=== PATIENT | male | born 1985 | race Caucasian/White ===

== ENCOUNTER → 2016-10-24 | Outpatient (CLI) | payer OTHER ==
[~2016-10-24] VITALS: Ht 175.3 cm; Wt 80.2 kg
[2016-10-24 13:11] VITALS: BP 146/88; PULSE 75; Ht 175.3 cm; Wt 80.2 kg
== END | disposition home or self-care (01) ==
LOC: C.NEUR 12:35
PROVIDERS: ATTEND Internal Medicine Pulmonary Disease
DX: R06.81 Apnea, not elsewhere classified (principal); Z87.898 Personal history of other specified conditions; E11.9 Type 2 diabetes mellitus without complications

== ENCOUNTER → 2016-12-06 | Outpatient (CLI) | payer OTHER ==
--- NOTE | 2016-12-07 06:22 | PAP/PSG TECHNICIAN REPORT ---
[facility] Spa Supervisor Polysomnogram Report Study name: None Report date: 12/07/2016 Study date: 12/06/2016 Referring Physician: Dodie Thompson PA-C Name: JULIO GARCIA Interpreting Physician: Randall Christianson M.D. Date of : 1985 Spa Supervisor: Irene Krishnan RPS. Sex: Male Age: 31 Study Type: PSG Weight: 176 lbs 15 in Height: 31 years, Height 5' 9" Neck Circum: BMI: 25.99 Medications: HUMALOG 100 UNIT/ML Patient History 31 yr-old male here for a baseline study. He has a history of waking up not refreshed, snoring, and witnessed apneas. His [place] scale is 12. The test was started on room air. ETCO2 testing was not utilized during this study. Room 3 Parameters Monitored NPSG: E1-M2, E2-M1, Fp1-M2, Fp2-M1, F3-M2, F4-M2, F4-M1, C3-M2, C4-M2, C4-M1, O1-M2, O2-M2, O2-M1, T3-M2, T4-M1, P3-M2, P4-M1, CHIN1, CHIN2, HR, EKG, Legs, PFLOW, SNOR, FLOW, CFLOW, [place] Volume, THOR, ABDO, SpO2, PLTH, CPRESS, ETCO2 Wave, ETCO2, pH Sleep Architecture Sleep Stages Time at Lights Off 10:37:47 PM STAGES Time (min.) TST (%) Time at Lights On 5:29:17 AM Wake 11.5 -- Total Recording Time (TRT) 411.50 min. N1 19.0 5 Total Sleep Period (TSP) 409.0 min. N2 248.0 62 Total Sleep Time (TST) 400.0min. N3 22.0 6 Awake Time 11.5 min. REM 111.0 28 Wake after Sleep Onset 9.0 min. Sleep Efficiency (SE) 97 % Sleep Onset Latency (TYRA) 2.5 min. Number of Stage 1 Shifts None Awakenings 7 Stage Changes 67 Number of REM periods 7 REM 111.0 28 REM Latency 65.5 min. NREM 289.0 72 Body Position Analysis Supine Right Left Side Prone Vertical Total Sleep Time (min.) 239.9 0.0 160.9 160.86 8.0 0.0 Total Sleep Time (%) 58% 0% 40% 40 2% N/A% Total Sleep Time REM (min.) 40.0 0.0 71.0 None 0.0 0.0 Total Sleep Time NREM (min.) 193.2 0.0 89.8 None 6.0 0.0 Intermittent Wake (min.) 6.8 0.0 2.7 None 2.0 0.0 Total Sleep Period (%) 58% None None None None None Arousals Myoclonus (PLM) * Events Count Index Events Count Index Spontaneous 32 5 Events Awake (PLMW) 10 52.2 Respiratory 0 0.2 Events Asleep w/ Arousal (PLMA) 8 1.2 PLM 8 1 Events Asleep w/o Arousal (PLMS) 95 14.3 Snoring 19 3 Total Asleep 103 15.5 Total 59 9 Total 113 16 Respiratory Analysis * CA OA MA CH H RERA Total Count 0 3 0 0 9 0 12 Index 0.0 0.5 0.0 0 1.4 0 1.8 Mean Duration 0.0 21.1 0.0 0.00 22.0 0.0 21.8 Longest Duration 0.0 26.7 0.0 0.00 0.0 0.0 30.6 Respiratory Event Summary Total Supine ~Supine Right Left Prone REM NREM Apneas Count 3 2 1 N/A 1 0 0 3 Index 0.5 1 0 N/A 0.4 0 0 1 Hypopneas (4% Desat) Count 9 6 3 N/A 3 0 4 5 Index 1.4 1.5 1 N/A 1.1 0.0 2.2 1.0 Apneas & All Hypopneas Count 12 8 4 N/A 4 0 4 8 Index 1.8 2 1 N/A 1 0 2.2 1.7 Respiratory Events (Block Setter Gypsum+All Hyp+RERA) Count 12 8 4 N/A 4 0 4 8 Index 1.8 2 1 N/A 1.5 0.0 2.2 1.7 Respiratory Related Arousal Count 0 8 1 N/A 1 0 0 1 Index 0.2 0 0 N/A 0 0 0 0 Snoring Analysis Supine Right Left Prone REM NREM Total Snore duration 28.0 min Snores count 920 N/A 272 55 116 1,131 1,247 Snore mean duration 1.3 Sec Snores index 237 N/A 101 550 62.7 234.8 187.1 TST with snoring (%) 7.0% Desaturation Event Summary: Minimum %SpO2 Event Count Mean/Min/Max Duration(sec.) Desaturation Index % Time In Bed > 90 25 26.9 / 10.3 / 52.2 3.7 99.7 86 - 90 0 N/A 0.0 0.3 81 - 85 0 N/A 0.0 0.0 76 - 80 0 N/A 0.0 0.0 71 - 75 0 N/A 0.0 0.0 66 - 70 0 N/A 0.0 0.0 61 - 65 0 N/A 0.0 0.0 56 - 60 0 N/A 0.0 0.0 51 - 55 0 N/A 0.0 0.0 < 50 0 N/A 0.0 0.0 Total REM NREM Awake <50% 0.0 min. 0.0 min. 0.0 min. 0.0 min. 51 - 60% 0.0 min. 0.0 min. 0.0 min. 0.0 min. 61 - 70% 0.0 min. 0.0 min. 0.0 min. 0.0 min. 71 - 80% 0.0 min. 0.0 min. 0.0 min. 0.0 min. 81 - 90% 1.4 min. 0.6 min. 0.8 min. 0.0 min. 91 - 100% 410.1 min. 110.4 min. 288.2 min. 11.5 min. Average 94 95 94 94 Minimum SpO2 87 87 87 91 Desaturation Event Index 3.6 5.4 2.9 5.2 # Desat. Events below 89% 3 2 1 N/A Time(%) with Saturation below 89% 0.1 0.1 0.0 0.0 Time(min.) with Saturation below 89% 0.5 0.3 0.2 0.0 Time (mins) REM (mins) NREM (mins) % of TST SpO2 Below 90% 5 2 N3 0.2 SpO2 Below 88% 1 0 0 0 Heart Rate Analysis Min (bpm) Max (bpm) Average (bpm) Awake 58 104 72 NREM 52 107 66 REM 56 86 69 Overall 52 107 67 Supplemental O2 Values Minimum O2 level: None Value Start Time End Time Spa Supervisor Comments Mr. Garcia slept in the left, prone, and supine positions. No cardiac arrhythmias or PLMs noted. No bruxism noted. Snoring was noted and scored as a 2-3 on a scale of 1 through 5. (0=no snoring, 5=snoring loud enough to be heard through a closed door or down the martini way). He did not wake up to use the restroom during the night. Mr. Garcia stated that he slept about the same as usual. The final report will be interpreted and signed by a sleep physician. The completed physician report will then be placed in the patient medical record. Therapy (cm H2O) 0 TIB (min.) 411.5 TST (min.) 400.0 Sleep Onset (min.) 2.5 REM Onset From Sleep (min.) 65.5 Sleep Efficiency % 97 Wakefulness (%) 3 Wakefulness (min.) 11.5 NREM 1 (%) 5 NREM 1 (min.) 19.0 NREM 2 (%) 62 NREM 2 (min.) 248.0 NREM 3 (%) 6 NREM 3 (min.) 22.0 REM (%) 28 REM (min.) 111.0 # Arousals 59 Arousal Index 9 # Snore 1,247 Snore Index 187.1 AHI 1.8 AHI Supine 2 AHI Non-Supine 1 NREM AHI 1.7 REM AHI 2.2 RDI 1.8 # Obstructive Apnea 3 # Central Apnea 0 # Mixed Apnea 0 # Hypopneas 9 RERAs 0 Total Respiratory Events 12 Time Below SpO2 89% (min.) 0.5 Mean NREM SpO2 (%) 94 Mean REM SpO2 (%) 95 Mean Sleep SpO2 (%) 94 Min NREM SpO2 (%) 87 Min REM SpO2 (%) 87 Position Supine (min.) 239.9 Position Non-supine (min.) 166.9 LM Index Sleep 15.5 LM Index NREM 13.1 LM Index REM 21.6 Mean Heart Rate (bpm) 67 Min Heart Rate (bpm) 52
--- NOTE | 2016-12-08 18:04 | POLYSOMNOGRAPH REPORT ---
CLINICAL DATA: A 31-year-old male with BMI of 26, referred by Dodie Thompson and myself for a history of witnessed apneic episodes and snoring. His [place] sleepiness score is 12/24. SLEEP ARCHITECTURE: Total sleep period was 409 minutes. Total sleep time was 400 minutes divided between 289 minutes of non-REM sleep, and 111 minutes of REM sleep. Sleep onset latency was 2.5 minutes. REM latency was 65.5 minutes. Sleep efficiency was 97%. Wake after sleep onset was 9 minutes. Sleep consisted of stage N1 5%, N2 62%, N3 6%, REM 28%. AROUSAL DATA: 59 arousals were recorded for an index of 9 per hour. PERIODIC LIMB MOVEMENTS DATA: 103 limb movements during sleep were noted for an index of 15.5 per hour with arousal index of 1.2 per hour. RESPIRATORY DATA: No significant sleep apnea was seen. The AHI was 1.8. There were 3 obstructive apneic episodes. The longest apneic episode was 26.7 seconds. There were 9 hypopneic episodes. The mean duration of hypopnea was 22 seconds. OXIMETRY DATA: Transient hypoxemia was seen. Oxygen nhung was 87% during REM. Mean saturation was 94%. Time below 88% was 1 minute. ELECTROCARDIOGRAM: Heart rates ranged from 52-107 beats per minute. No arrhythmias were noted. VP'S COMMENTS: The patient slept in the prone, supine, and in the left position. Snoring was moderate, rated 2-3 on a scale of 1 through 5. He did have 4 sleep cycles, each of which ended in REM sleep. IMPRESSION: No evidence of clinically significant sleep apnea/hypopnea, nocturnal hypoxemia or abnormal limb movements during sleep to explain this patient's symptoms. RECOMMENDATIONS: The patient should continue to practice good sleep hygiene. [facility]
== END | disposition home or self-care (01) ==
LOC: C.NEUR 21:00
PROVIDERS: ATTEND Allergy & Immunology Allergy
DX: Z87.898 Personal history of other specified conditions (principal); R06.81 Apnea, not elsewhere classified

== ENCOUNTER → 2017-01-02 | Outpatient (CLI) | payer OTHER ==
[~2017-01-02] VITALS: Ht 268 cm; Wt 84.1 kg
[2017-01-02 14:58] VITALS: BP 143/86; PULSE 84; Ht 268 cm; Wt 84.1 kg
== END | disposition home or self-care (01) ==
LOC: C.NEUR 13:40
PROVIDERS: ATTEND Physician Assistant Medical
DX: Z87.898 Personal history of other specified conditions (principal); R06.81 Apnea, not elsewhere classified; E11.9 Type 2 diabetes mellitus without complications

== ENCOUNTER → 2017-03-20 | Outpatient (CLI) | payer OTHER ==
[2017-03-21 06:49] LABS: ESTIMATED AVERAGE GLUCOSE 206 mg/dl; HA1C FLAG Normal (Normal)
== END | disposition home or self-care (01) ==
LOC: C.LAB1850 14:00
PROVIDERS: ATTEND Physician Assistant
DX: E10.9 Type 1 diabetes mellitus without complications (principal)

== ENCOUNTER → 2017-09-07 | Outpatient (CLI) | payer OTHER ==
[2017-09-07 13:26] LABS: ESTIMATED AVERAGE GLUCOSE 194 mg/dl; HA1C FLAG Normal (Normal)
[2017-09-07 13:48] LABS: ALT/SGPT 39 U/L (12-78); BLOOD UREA NITROGEN 15 mg/dl (7-18); BUN/CREATININE RATIO 13.2 (10-20); CALCIUM 9.4 mg/dl (8.5-10.1); CARBON DIOXIDE 31 mmol/L (21-32); CHLORIDE 104 mmol/L (98-107); CHOLESTEROL 182 mg/dl (0-200); GLUCOSE 161 mg/dl (70-99); POTASSIUM 4.7 mmol/L (3.5-5.1); SODIUM 140 mmol/L (136-145)
[2017-09-07 13:59] LABS: ALB/GLOB RATIO 1.1 (0.9-2); ALKALINE PHOSPHATASE 66 U/L (45-117); AST/SGOT 16 U/L (15-37); CHOLESTEROL/HDL RATIO 2.1; HDL CHOLESTEROL 87 mg/dl; LDL CHOLESTEROL CALCULATED 88 mg/dl; TRIGLYCERIDES 37 mg/dl (0-150); VERY LOW DENSITY LIPOPROT CALC 7 mg/dl
[2017-09-07 15:33] LABS: RATIO 6.1 mcg/mg (0-30.0)
== END | disposition home or self-care (01) ==
LOC: C.LAB1850 12:11
PROVIDERS: ATTEND Physician Assistant
DX: E10.9 Type 1 diabetes mellitus without complications (principal)